=== PATIENT | male | born 1975 | race Two or more races ===

== ENCOUNTER 2016-12-07 13:48 | Emergency (ER) | payer SELFPAY ==
[~2016-12-07] VITALS: Ht 177.8 cm; Wt 77.1 kg
[2016-12-07 13:56] VITALS: BP 124/67
[2016-12-07] MEDS ORDERED: ACETAMINOPHEN ES 500 MG TABLET PO ONE (14:30)
[2016-12-07] MEDS ORDERED: ACETAMINOPHEN ES 500 MG TABLET ONE (15:05)
== END 2016-12-07 15:57 | disposition home or self-care (01) ==
LOC: ER 13:49
DX: S16.1XXA Strain of muscle, fascia and tendon at neck level, initial encounter (principal); S86.912A Strain of unspecified muscle(s) and tendon(s) at lower leg level, left leg, initial encounter; F17.200 Nicotine dependence, unspecified, uncomplicated; V49.49XA Driver injured in collision with other motor vehicles in traffic accident, initial encounter; Y93.89 Activity, other specified; Y92.89 Other specified places as the place of occurrence of the external cause; Y99.9 Unspecified external cause status
CPT/HCPCS: 71010; 72040; 99284; A4606; J7040; Z7610